=== PATIENT | male | born 1975 | race Caucasian/White ===

== ENCOUNTER 2017-08-01 12:19 | Emergency (ER) | payer MEDICAID, OTHER ==
[~2017-08-01] VITALS: Ht 175.3 cm; Wt 88.5 kg
[~2017-08-01 12:19] MED LIST: ALPR1TAB7 PO; GABA400C PO; METHADONE; QUET200T PO
[2017-08-01] MEDS ORDERED: CLON2TAB4 PO (12:32)
[2017-08-01] MEDS ORDERED: BUPR100T5 PO (12:32)
--- NOTE | 2017-08-01 12:40 | NUR ---
pt refused to sign d/c instruction. threw the resource info paper on the floor and started to yell and curse. pt hit the door while walking out of ed.
== END 2017-08-01 12:45 | disposition home or self-care (01) ==
LOC: ER 12:20
DX: F41.9 Anxiety disorder, unspecified (principal); F17.200 Nicotine dependence, unspecified, uncomplicated
CPT/HCPCS: 99284; A4663

== ENCOUNTER 2018-05-08 09:32 | Emergency (ER) | payer MEDICAID ==
[~2018-05-08] VITALS: Ht 177.8 cm; Wt 88.5 kg
[~2018-05-08 09:32] MED LIST changes: -ALPR1TAB7 PO; +BUPR100T5 PO; +CLON2TAB11 PO; -GABA400C PO; -METHADONE; -QUET200T PO
[2018-05-08] MEDS ORDERED: METH50PO2 PO (09:42)
[2018-05-08] MEDS ORDERED: CITA20TA19 PO (09:42)
[2018-05-08] MEDS ORDERED: ALPR2TAB2 PO (09:42)
--- NOTE | 2018-05-08 09:55 | NUR ---
Patient discharged to home in stable conditon. Written and verbal after care instructions given. Patient verbalizes understanding of instructions.
== END 2018-05-08 09:57 | disposition home or self-care (01) ==
LOC: ER 09:32
DX: L01.00 Impetigo, unspecified (principal); F17.200 Nicotine dependence, unspecified, uncomplicated; F11.10 Opioid abuse, uncomplicated
CPT/HCPCS: 99283; A4663

== ENCOUNTER 2021-02-13 09:19 | Emergency (ER) | payer MEDICAID ==
[~2021-02-13] VITALS: Ht 175.3 cm; Wt 83.9 kg
[~2021-02-13 09:19] MED LIST changes: +ALPR2TAB2 PO; -BUPR100T5 PO; +CITA20TA19 PO; -CLON2TAB11 PO; +METH50PO2 PO
[2021-02-13] MEDS ORDERED: AMOX-430 PO (10:03)
--- NOTE | 2021-02-13 10:18 | NUR ---
Patient discharged to home in stable condition. Written and verbal after care instructions given. Patient verbalizes understanding of instructions. Stressed follow up or return to ER for worsening s/s.
== END 2021-02-13 10:18 | disposition home or self-care (01) ==
LOC: ER 09:19
DX: H00.031 Abscess of right upper eyelid (principal); F11.20 Opioid dependence, uncomplicated; F41.9 Anxiety disorder, unspecified; Z79.899 Other long term (current) drug therapy
CPT/HCPCS: A4663

== ENCOUNTER 2021-02-25 19:09 | Inpatient (IN) | payer BC, MEDICAID ==
[~2021-02-25] VITALS: Ht 177.8 cm; Wt 81.6 kg
[~2021-02-25 19:09] MED LIST changes: +AMOX-430 PO
--- NOTE | 2021-02-25 19:31 | NUR ---
is at bedside for mse.
--- NOTE | 2021-02-25 19:32 | NUR ---
Pt came in today from home for rt side flank pain starting 6 hours pt. 05/14 pain non radiating. Pt denies n/v/d.
[2021-02-25 19:37] LABS: *BILIRUBIN,URIN NEGATIVE (NEGATIVE); *BLOOD, URINE NEGATIVE (NEGATIVE); *CLARITY,URINE CLEAR (CLEAR); *COLOR,URINE YELLOW (YELLOW); *KETONES,URINE NEGATIVE (NEGATIVE); *UROBILINOGEN,URINE 0.2 E.U./dl (NORMAL); LEUKOCYTE ESTERASE ,URINE NEGATIVE (NEGATIVE); NITRITE, URINE NEGATIVE (NEGATIVE); UGLUCOSE NEGATIVE (NEGATIVE)
[2021-02-25] MEDS ORDERED: KETOROLAC TROMETHAMINE 30 MG INJ ONE (19:43)
[2021-02-25] MEDS ORDERED: KETOROLAC TROMETHAMINE 30 MG INJ IVP ONE (19:45)
--- NOTE | 2021-02-25 20:00 | NUR ---
Pt reports pain is reduced from 10 to 6. Pt resting in bed, stable. Vss. Will continue to monitor.
[2021-02-25 20:08] LABS: HEMATOCRIT 42.3 % (36.7-47.1); MEAN CORPUSCULAR HEMOGLOBIN 33.2 uug (23.8-33.4); MEAN CORPUSCULAR VOLUME 95.4 fL (73.0-96.2); PLATELET COUNT (AUTO) 239 K/uL (152-348)
[2021-02-25 20:13] LABS: POTASSIUM 4.1 mmol/L (3.5-5.1)
[2021-02-25] MEDS ORDERED: IV NORMAL SALINE 1000 ML BAG IV ONE (20:15)
[2021-02-25 20:19] LABS: BILIRUBIN,DIRECT 0.2 mg/dL (0.0-0.2); BILIRUBIN,TOTAL 0.6 mg/dL (0.2-1.0); TOTAL PROTEIN, SERUM 7.9 g/dL (6.4-8.2)
[2021-02-25] MEDS ORDERED: HYDROMORPHONE 1 MG/1 ML DISP.SYRIN IV ONE (23:00)
[2021-02-25] MEDS ORDERED: HYDROMORPHONE 1 MG/1 ML DISP.SYRIN ONE (23:12)
[2021-02-26] MEDS ORDERED: HYDROMORPHONE 1 MG/1 ML DISP.SYRIN IV ONE ×2 (00:30→01:45)
[2021-02-26] MEDS ORDERED: HYDROMORPHONE 1 MG/1 ML DISP.SYRIN ONE ×3 (00:39→11:11)
[2021-02-26] MEDS ORDERED: METRONIDAZOLE 500 MG/NS 100ML 100 ML IV ONE ×2 (01:15→01:34)
[2021-02-26] MEDS ORDERED: CEFTRIAXONE 1 G in IV DEXTROSE 5% 50 ML IV ONE (01:15)
[2021-02-26] MEDS ORDERED: GABA-532 PO (01:31)
[2021-02-26] MEDS ORDERED: BUPR150T5 PO (01:31)
[2021-02-26] MEDS ORDERED: TRAZ-182 PO (01:31)
[2021-02-26] MEDS ORDERED: BUSP5TAB3 PO (01:31)
[2021-02-26] MEDS ORDERED: METH5TAB2 PO ×2 (01:31→13:32)
[2021-02-26] MEDS ORDERED: CEFTRIAXONE /D5W 50ML IVPB **ER PYXIS IV ONE (01:34)
[2021-02-26] MEDS ORDERED: BUSP15TA3 PO (01:40)
[2021-02-26] MEDS ORDERED: GABA600T12 PO (01:40)
--- NOTE | 2021-02-26 01:59 | NUR ---
Dr. Crawford on panel call with Michaela Seay NP.
[2021-02-26] MEDS ORDERED: Z GUARD REMEDY PASTE 57 GM TUBE TOP PRN (02:15)
[2021-02-26] MEDS ORDERED: ACETAMINOPHEN 325 MG TABLET PO PRN (02:15)
[2021-02-26] MEDS ORDERED: ONDANSETRON 4 MG/2 ML VIAL IV PRN (02:15)
[2021-02-26] MEDS ORDERED: IV D5 1/2 NS 1000 ML 1,000 ML IV PRN (02:15)
[2021-02-26] MEDS ORDERED: MAGNESIUM HYDROXIDE 30 ML LIQUID UDC PO PRN (02:15)
--- NOTE | 2021-02-26 02:15 | NUR ---
Pt to be admitted to m/s.
[2021-02-26 02:40] LABS: POTASSIUM 3.9 mmol/L (3.5-5.1)
[2021-02-26 02:42] LABS: HEMATOCRIT 44.3 % (36.7-47.1); MEAN CORPUSCULAR HEMOGLOBIN 32.7 uug (23.8-33.4); MEAN CORPUSCULAR VOLUME 95.8 fL (73.0-96.2); PLATELET COUNT (AUTO) 245 K/uL (152-348)
--- NOTE | 2021-02-26 02:48 | NUR ---
Bro from nuclear medicine called, she will be taking pt. to get scan from ER.
[2021-02-26 02:50] LABS: BILIRUBIN,DIRECT 0.3 mg/dL (0.0-0.2); BILIRUBIN,TOTAL 0.6 mg/dL (0.2-1.0); PHOSPHOROUS 3.4 mg/dL (2.5-4.9)
--- NOTE | 2021-02-26 03:30 | NUR ---
Pt. comfortable, watching television. Vss. Will continue to monitor.
--- NOTE | 2021-02-26 03:34 | NUR ---
Gave report to MAURICIO Jones.
--- NOTE | 2021-02-26 03:34 | NUR ---
Carisa from nuclear medicine called, will not be doing hida scan on pt. tonight.
[2021-02-26 03:56] LABS: THYROID STIMULATING HORMONE 4.796 mIU/mL (0.358-3.740)
--- NOTE | 2021-02-26 04:15 | NUR ---
Gave report to MAURICIO Lopez.
[2021-02-26 04:30] VITALS: BP 117/76
[2021-02-26] MEDS: MORPHINE SULFATE 2 MG/1 ML DISP.SYRIN IV PRN ×3 (05:04→18:12)
[2021-02-26 05:18] VITALS: BP 117/76
--- NOTE | 2021-02-26 08:00 | NUR ---
RECEIVED CHANGE OF SHIFT REPORT ON PT. C/O RIGH FLANK PAIN, AND ABD PAIN 05/14. PT A/O X4, ON ROOM AIR, NO SIGNS OF DISTRESS. PT BRP, IV ON THE RIGHT HAND 20G, PATENT AND INTACT. BED LOW AND LOCKED, CALL LIGHT WITHIN REACH. PT NPO PENDING CONSULT FROM DR CALVO FOR POSSIBLE SURGICAL PROCEDURE. WILL CONTINUE WITH PLAN OF CARE.
[2021-02-26] MEDS ORDERED: PANTOPRAZOLE SODIUM 40 MG VIAL IV SCH (09:00)
[2021-02-26] MEDS ORDERED: LORAZEPAM 2 MG/1 ML VIAL IV PRN ×2 (09:00)
[2021-02-26] MEDS: GABAPENTIN 300 MG CAPSULE PO SCH ×3 (09:05→17:09)
[2021-02-26] MEDS: busPIRone 10 MG TABLET PO SCH ×2 (09:05→17:09)
[2021-02-26] MEDS: buPROPion SR 150 MG TABLET.SA PO SCH ×3 (09:05→17:09)
[2021-02-26] MEDS: LORAZEPAM 2 MG/1 ML VIAL IV PRN ×2 (09:06→23:23)
[2021-02-26] MEDS ORDERED: MIDAZOLAM HCL 2 MG/2 ML VIAL ONE (09:09)
[2021-02-26] MEDS ORDERED: HYDROMORPHONE 2 MG/1 ML DISP.SYRIN ONE (09:10)
[2021-02-26] MEDS ORDERED: ROCURONIUM BROMIDE 50 MG/5 ML VIAL ONE (09:10)
[2021-02-26] MEDS ORDERED: FENTANYL CITRATE 250 MCG/5 ML AMPUL ONE (09:10)
--- NOTE | 2021-02-26 09:10 | NUR ---
PT WENT TO SURGERY FOR LAP LIBERTY WITH POSSIBLE OPEN. INFORMED CONSENT OBTAINED, PREOP CHECKLIST COMPLETE, REPORT GIVEN TO OR NURSE.
[2021-02-26] MEDS ORDERED: BUPIVACAINE/EPI PF 0.25% 30 ML VIAL ONE (09:12)
[2021-02-26] MEDS ORDERED: GLYCOPYRROLATE 0.2 MG/ML VIAL ONE (10:02)
[2021-02-26] MEDS ORDERED: ONDANSETRON 4 MG/2 ML VIAL IV ONE (10:24)
[2021-02-26] MEDS ORDERED: CEFAZOLIN 1 G VIAL IM ONE (10:24)
[2021-02-26] MEDS ORDERED: PROPOFOL 200 MG/20 ML BOTTLE IV ONE (10:24)
[2021-02-26] MEDS ORDERED: NEOSTIGMINE METHYLSULFATE 10 MG/10 ML VIAL IV ONE (10:24)
[2021-02-26] MEDS ORDERED: GLYCOPYRROLATE 0.2 MG/ML VIAL IJ ONE (10:24)
[2021-02-26] MEDS ORDERED: DEXAMETHASONE SOD PHOSPHATE 4 MG INJ IV ONE (10:24)
[2021-02-26] MEDS ORDERED: SEVOFLURANE 250 ML BOTTLE IH ONE (10:24)
[2021-02-26] MEDS ORDERED: MEPERIDINE 25 MG/1 ML DISP.SYRIN ONE (10:34)
[2021-02-26] MEDS ORDERED: ONDANSETRON 4 MG/2 ML VIAL ONE (11:12)
--- NOTE | 2021-02-26 12:00 | NUR ---
PT BACK FROM SURGERY, WITH MARILIA FITZPATRICK RN. OKAY TO CONTINUE REGULAR DIET PER MD. PT VITALS STABLE, PT GIVEN INCENTIVE SPIROMETER AND PAIN MEDICATION, WILL CONTINUE TO MONITOR.
[2021-02-26] MEDS: METRONIDAZOLE 500 MG/NS 100ML 500 MG in PREMIXED 1 EACH IV SCH ×2 (12:17→18:09)
[2021-02-26 12:45] VITALS: BP 94/55
[2021-02-26 15:27] VITALS: BP 113/54
[2021-02-26] MEDS: TRAZODONE 50 MG TABLET PO SCH (17:09)
--- NOTE | 2021-02-26 17:15 | NUR ---
PT REFUSED SECOND DOSE OF WELLBUTRIN, PT STATES HE ONLY TAKES 150MG ONCE/DAY, MD NOTIFIED. WILL CONTINUE WITH PLAN OF CARE.
--- NOTE | 2021-02-26 20:26 | NUR ---
Received on bed awake with the same ivf on. complaints of incisional pain and is grimacing but was given morphine 1 mg iv at 1818 hours not yet due, Dr Schroeder paged and informed , awaiting orders,
--- NOTE | 2021-02-26 20:29 | NUR ---
responded and will give orders now. awaiting for orders,
[2021-02-26] MEDS ORDERED: IV NS 1000 ML 1,000 ML IV PRN (20:30)
[2021-02-26 20:37] VITALS: BP 103/56
--- NOTE | 2021-02-26 20:56 | NUR ---
dilaudid 1 mg ivp prepared and when came to the room patient is asleep. nsaline ivf started , asleep.
--- NOTE | 2021-02-26 21:16 | NUR ---
report given to another rn foir further care. ivf on flow.patient is asleep. incentive spirometer at bedside,
[2021-02-27] MEDS ORDERED: CEFTRIAXONE 1 G in IV DEXTROSE 5% 50 ML IV SCH (01:00)
--- NOTE | 2021-02-27 02:00 | NUR ---
C/O SHARP ABD PAINS, RADIATING TO SHOULDERS. INSTRUCTED TO AMBULATE AD ZHEN TO GET RID GAS PAINS. VERBALIZED UNDERSTANDING AND AMBULATING AD ZHEN.
[2021-02-27] MEDS: METRONIDAZOLE 500 MG/NS 100ML 500 MG in PREMIXED 1 EACH IV SCH ×2 (03:31→11:04)
[2021-02-27] MEDS: HYDROMORPHONE 1 MG/1 ML DISP.SYRIN IV PRN ×2 (03:32→07:54)
[2021-02-27 04:43] VITALS: BP 127/60
[2021-02-27 07:01] LABS: HEMATOCRIT 37.6 % (36.7-47.1); MEAN CORPUSCULAR HEMOGLOBIN 33.1 uug (23.8-33.4); MEAN CORPUSCULAR VOLUME 97.8 fL (73.0-96.2); PLATELET COUNT (AUTO) 217 K/uL (152-348)
[2021-02-27 07:13] LABS: CREATININE 0.9 mg/dL (0.6-1.3); POTASSIUM 4.5 mmol/L (3.5-5.1)
[2021-02-27] MEDS: PANTOPRAZOLE SODIUM 40 MG TABLET.DR PO SCH (07:53)
[2021-02-27] MEDS: busPIRone 10 MG TABLET PO SCH ×2 (08:01→16:16)
[2021-02-27] MEDS: buPROPion SR 150 MG TABLET.SA PO SCH (08:01)
[2021-02-27] MEDS: GABAPENTIN 300 MG CAPSULE PO SCH ×3 (08:01→16:16)
[2021-02-27 08:18] VITALS: BP 110/69
[2021-02-27] MEDS: LORAZEPAM 2 MG/1 ML VIAL IV PRN (10:35)
--- NOTE | 2021-02-27 11:00 | NUR ---
PT IV WAS INFILTRATED, IV REMOVED. MULTIPLE FAILED ATTEMPTS TO REINSERT IV, VEIN FINDER ALSO USED AND WAS UNSUCCESSFUL. PT IS A HARD STICK WITH PAST HISTORY OF DRUG ABUSE FOR 20YRS.
[2021-02-27 11:35] VITALS: BP 110/75
--- NOTE | 2021-02-27 13:00 | NUR ---
MULTIPLE UNSUCCESSFUL ATTEMPTS, MD MADE AWARE, MEDICATIONS CHANGE TO PO
[2021-02-27] MEDS ORDERED: levoFLOXacin 500 MG TABLET PO SCH (13:30)
[2021-02-27] MEDS: METRONIDAZOLE 500 MG TABLET PO SCH ×2 (14:21→21:17)
[2021-02-27] MEDS: OXYCODONE HCL 5 MG TABLET PO PRN ×2 (14:22→20:57)
[2021-02-27 14:59] VITALS: BP 116/70
[2021-02-27] MEDS ORDERED: BISACODYL 5 MG TABLET.DR PO ONE (16:00)
[2021-02-27] MEDS: SIMETHICONE 80 MG TAB.CHEW PO PRN (16:16)
[2021-02-27] MEDS: TRAZODONE 50 MG TABLET PO SCH (18:43)
[2021-02-27 21:21] VITALS: BP 109/61
[2021-02-28] MEDS ORDERED: ZOLPIDEM 5 MG TABLET PO PRN
[2021-02-28] MEDS: OXYCODONE HCL 5 MG TABLET PO PRN ×3 (02:54→11:50)
[2021-02-28 04:00] VITALS: BP 120/69
--- NOTE | 2021-02-28 05:44 | NUR ---
PT slept intermittently throughout the night. Requested Ambien, order received and patient tolerated well. No other distress noted. Tolerated all medications given. Safety and comfort provided. Will endorse to day shift.
[2021-02-28 06:38] LABS: HEMATOCRIT 36.3 % (36.7-47.1); MEAN CORPUSCULAR HEMOGLOBIN 33.4 uug (23.8-33.4); PLATELET COUNT (AUTO) 208 K/uL (152-348)
[2021-02-28] MEDS: PANTOPRAZOLE SODIUM 40 MG TABLET.DR PO SCH (06:40)
[2021-02-28] MEDS: METRONIDAZOLE 500 MG TABLET PO SCH (06:41)
[2021-02-28 06:53] LABS: CREATININE 0.8 mg/dL (0.6-1.3); POTASSIUM 4.3 mmol/L (3.5-5.1)
[2021-02-28 07:40] VITALS: BP 129/61
[2021-02-28] MEDS: buPROPion SR 150 MG TABLET.SA PO SCH (08:46)
[2021-02-28] MEDS: GABAPENTIN 300 MG CAPSULE PO SCH (08:46)
[2021-02-28] MEDS: busPIRone 10 MG TABLET PO SCH (08:46)
[2021-02-28 11:32] VITALS: BP 108/52
[2021-02-28] MEDS: SIMETHICONE 80 MG TAB.CHEW PO PRN (11:53)
[2021-02-28] MEDS ORDERED: METR-147 PO (12:26)
[2021-02-28] MEDS ORDERED: CIPR-262 PO (12:26)
--- NOTE | 2021-02-28 14:01 | NUR ---
Discharged patient to home. Patient Aox4. On room air. No signs of acute distress. Discharge documents given and signed. Belongings accounted for and belongings list signed. IV armband removed. Prescription given to patient. Patient ambulated to hospital lobby. Patient left hospital via private car.
[2021-03-01] MEDS ORDERED: HYDR-3980 PO (10:49)
[2021-03-01] MEDS ORDERED: CLON0.5T PO (10:49)
== END 2021-02-28 13:10 | disposition home or self-care (01) | DRG 419 ==
LOC: ER 19:10 → MEDSURG3 02-26 03:50
PROVIDERS: ADMIT Nurse Practitioner Acute Care; ATTEND Nurse Practitioner Acute Care
PROC: 0FT44ZZ Resection of Gallbladder, Percutaneous Endoscopic Approach (ICD-10-PCS; principal; 2021-02-26)
DX: K80.00 Calculus of gallbladder with acute cholecystitis without obstruction (principal); F17.210 Nicotine dependence, cigarettes, uncomplicated; E03.8 Other specified hypothyroidism; F41.9 Anxiety disorder, unspecified; R74.01 Elevation of levels of liver transaminase levels; Z20.822 Contact with and (suspected) exposure to COVID-19
CPT/HCPCS: 36415; 71045; 83690; 83735; 84100; 84443; 85025; 85730; 86850; 86900; 86901; 93005; A4663; C9113; G0378; J0690; J0696; J1100; J1170; J1885; J2060; J2175; J2250; J2270; J2405; J3010; J3490; J7030; J7040; J7042; J7060

== ENCOUNTER 2021-03-01 09:48 | Inpatient (IN) | payer BC, MEDICAID ==
[~2021-03-01] VITALS: Ht 177.8 cm; Wt 81.6 kg
[~2021-03-01 09:48] MED LIST changes: -ALPR2TAB2 PO; -AMOX-430 PO; +BUPR150T5 PO; +BUSP15TA3 PO; +CIPR-262 PO; -CITA20TA19 PO; +GABA600T12 PO; -METH50PO2 PO; +METH5TAB2 PO; +METR-147 PO; +TRAZ-182 PO
[2021-03-01] MEDS ORDERED: KETOROLAC TROMETHAMINE 15 MG INJ IVP ONE (10:30)
[2021-03-01] MEDS ORDERED: METOCLOPRAMIDE HCL 10 MG/2 ML VIAL IV ONE (10:30)
[2021-03-01] MEDS: METRONIDAZOLE 500 MG/NS 100ML 100 ML IV ONE ×2 (10:30→16:30)
[2021-03-01] MEDS: CEFTRIAXONE 1 G in IV DEXTROSE 5% 50 ML IV ONE ×2 (10:40→10:44)
[2021-03-01] MEDS ORDERED: METRONIDAZOLE 500 MG/NS 100ML 100 ML IV ONE (10:46)
[2021-03-01] MEDS ORDERED: CEFTRIAXONE /D5W 50ML IVPB **ER PYXIS IV ONE (10:46)
[2021-03-01] MEDS ORDERED: IOHEXOL 300MG/ML 100 ML INFUS..BTL ONE (10:49)
[2021-03-01] MEDS ORDERED: CLON0.5T PO (10:49)
[2021-03-01] MEDS ORDERED: SWABABLE VALVE TRANSFER SET EA MC ONE (10:49)
[2021-03-01] MEDS ORDERED: HYDR-3980 PO (10:49)
[2021-03-01] MEDS ORDERED: IV NORMAL SALINE 250 ML IV ONE (10:49)
[2021-03-01 10:50] LABS: HEMATOCRIT 38.8 % (36.7-47.1); MEAN CORPUSCULAR HEMOGLOBIN 33.1 uug (23.8-33.4); MEAN CORPUSCULAR VOLUME 97.2 fL (73.0-96.2); PLATELET COUNT (AUTO) 226 K/uL (152-348)
--- NOTE | 2021-03-01 11:00 | NUR ---
JOSE ENRIQUE STOPPED WORKING, PT REQUESTING IM PAIN MED AT THIS TIME. MD WODO. ROCEPHINE COMPLETED BUT FLAGYL IV PENDING FOR NOW. MD/PT AWARE.
[2021-03-01] MEDS: HYDROMORPHONE 1 MG/1 ML DISP.SYRIN IM ONE ×2 (11:01→11:39)
[2021-03-01 11:02] LABS: BILIRUBIN,DIRECT 0.3 mg/dL (0.0-0.2); BILIRUBIN,TOTAL 0.9 mg/dL (0.2-1.0); POTASSIUM 4.2 mmol/L (3.5-5.1); TOTAL PROTEIN, SERUM 7.9 g/dL (6.4-8.2)
--- NOTE | 2021-03-01 11:02 | NUR ---
Note joceline in EDM - 03/01/21 at 1134 by SAVANNAH JOSE ENRIQUE STOPPED WORKING, PT REQUESTING IM PAIN MED AT THIS TIME. MD WOOD. ROCEPHINE COMPLETED BUT FLAGYL IV PENDING FOR NOW. MD/PT AWARE.
[2021-03-01] MEDS ORDERED: HYDROMORPHONE 1 MG/1 ML DISP.SYRIN ONE ×3 (11:06→19:18)
--- NOTE | 2021-03-01 11:43 | NUR ---
DR. BUCHANAN TALKING TO DR. CALVO REGARDING CT RESULTS
--- NOTE | 2021-03-01 11:50 | NUR ---
[facility], CALLED [facility] AND INFORMED THEM.
--- NOTE | 2021-03-01 11:55 | NUR ---
CALLED [facility] FOR MIDLINE INSERTION PER MD ORDER
--- NOTE | 2021-03-01 12:19 | NUR ---
CALLED [facility], [facility], THE [address] IS [address] BY KAREN SAWYER,
[2021-03-01 13:11] LABS: *BILIRUBIN,URIN NEGATIVE (NEGATIVE); *CLARITY,URINE CLEAR (CLEAR); *COLOR,URINE YELLOW (YELLOW); *KETONES,URINE NEGATIVE (NEGATIVE); *UROBILINOGEN,URINE 0.2 E.U./dl (NORMAL); LEUKOCYTE ESTERASE ,URINE NEGATIVE (NEGATIVE); NITRITE, URINE NEGATIVE (NEGATIVE); UGLUCOSE NEGATIVE (NEGATIVE)
[2021-03-01 13:12] LABS: *BLOOD, URINE TRACE (NEGATIVE)
[2021-03-01 14:24] LABS: BACTERIA,URINE NONE SEEN /HPF (NONE SEEN); MUCUS,URINE FEW /LPF (0-FEW); RBC,URINE 0-3 /HPF (0-3); SQUAMOUS EPITHELIAL CELL,UR NONE SEEN /HPF (NONE SEEN); URINE AMORPHOUS URATE FEW /HPF; WBC,URINE 0-3 /HPF (0-3)
--- NOTE | 2021-03-01 14:43 | NUR ---
DEONTE CALLED AND SAID THEY ARE RUNNING BEHIND, EDUAR [id number], CALLED [facility] AND UPDATED THEM WITH NEW ETA.
[2021-03-01] MEDS ORDERED: HYDROMORPHONE 1 MG/1 ML DISP.SYRIN IM ONE ×2 (16:00→19:15)
--- NOTE | 2021-03-01 16:07 | NUR ---
GOYO CHICAS AT BEDSIDE FOR MID LINE INSERTION PER MD ORDER.
--- NOTE | 2021-03-01 16:20 | NUR ---
MAGALY PLACED GAUGE 18 PLACED ON RIGHT UPPER ARM.
--- NOTE | 2021-03-01 16:30 | NUR ---
[facility] AT BEDSIDE TO TAKE THE PT TO [facility] FOR MRCP PROCEDURE REQUESTED BY DR. CALVO.
--- NOTE | 2021-03-01 16:35 | NUR ---
INFORMED [facility] ABOUT PT BEING ON THE WAY.
--- NOTE | 2021-03-01 17:30 | NUR ---
[facility]
--- NOTE | 2021-03-01 20:38 | NUR ---
Gave report MAURICIO Jones.
[2021-03-01] MEDS ORDERED: MAGNESIUM HYDROXIDE 30 ML LIQUID UDC PO PRN (20:45)
[2021-03-01] MEDS ORDERED: levoFLOXacin 500 MG/D5W 500 MG in PREMIXED 1 EACH IV SCH (20:45)
[2021-03-01] MEDS ORDERED: Z GUARD REMEDY PASTE 57 GM TUBE TOP PRN (20:45)
[2021-03-01] MEDS ORDERED: ACETAMINOPHEN 325 MG TABLET PO PRN (20:45)
[2021-03-01] MEDS ORDERED: ONDANSETRON 4 MG/2 ML VIAL IV PRN (20:45)
[2021-03-01 21:34] VITALS: BP 115/73
--- NOTE | 2021-03-01 21:35 | NUR ---
Pt. admitted to med surg , under care of Dr.Monica cunningham Dx:Postoperative abdominal wound hemorrhage vitals stable Belongs List completed
[2021-03-01] MEDS: HYDROMORPHONE 1 MG/1 ML DISP.SYRIN IV PRN (21:54)
[2021-03-01] MEDS: IV NS 1000 ML 1,000 ML IV PRN (21:55)
[2021-03-01] MEDS ORDERED: METRONIDAZOLE 500 MG/NS 100ML 500 MG in PREMIXED 1 EACH IV SCH (22:00)
[2021-03-01] MEDS ORDERED: HYDROCODONE/APAP 10-325 MG TABLET PO PRN (22:45)
[2021-03-01] MEDS ORDERED: BUSPIRONE HCL PO SCH (23:45)
[2021-03-02] MEDS: busPIRone 10 MG TABLET PO SCH ×3 (00:01→17:37)
[2021-03-02] MEDS: ZOLPIDEM 5 MG TABLET PO PRN ×2 (00:22→23:34)
[2021-03-02] MEDS: HYDROMORPHONE 1 MG/1 ML DISP.SYRIN IV PRN ×4 (03:41→22:17)
[2021-03-02 04:10] VITALS: BP 114/80
--- NOTE | 2021-03-02 05:15 | NUR ---
Pt slept intermittently throughout the night. Requested Dilaudid for pain, tolerated well. Pt is AOx4, BRP, able to make needs known. IV site intact running ordered fluids. Safety and comfort provided. No other issues or concerns at this time, will endorse to day shift.
[2021-03-02] MEDS: METRONIDAZOLE 500 MG TABLET PO SCH ×3 (06:08→21:04)
[2021-03-02 06:27] LABS: HEMATOCRIT 35.3 % (36.7-47.1); MEAN CORPUSCULAR HEMOGLOBIN 33.7 uug (23.8-33.4); MEAN CORPUSCULAR VOLUME 96.7 fL (73.0-96.2); PLATELET COUNT (AUTO) 219 K/uL (152-348)
[2021-03-02 06:46] LABS: CREATININE 0.9 mg/dL (0.6-1.3); PHOSPHOROUS 2.5 mg/dL (2.5-4.9); POTASSIUM 4.1 mmol/L (3.5-5.1)
[2021-03-02] MEDS ORDERED: GABAPENTIN 300 MG CAPSULE PO SCH (09:00)
[2021-03-02] MEDS ORDERED: METHADONE PO SCH (09:00)
[2021-03-02] MEDS ORDERED: Medication Not On Formulary EA (Gabapentin 1 TAB) PO SCH (09:00)
[2021-03-02] MEDS ORDERED: BUSPIRONE HCL PO SCH (09:00)
[2021-03-02] MEDS: GABAPENTIN 300 MG CAPSULE PO SCH ×4 (09:59→17:38)
[2021-03-02] MEDS: CLONAZEPAM 0.5 MG TABLET PO SCH ×3 (09:59→17:38)
[2021-03-02] MEDS: buPROPion SR 150 MG TABLET.SA PO SCH ×2 (09:59→17:37)
[2021-03-02] MEDS: CIPROFLOXACIN HCL 250 MG TABLET PO SCH ×2 (10:00→17:58)
[2021-03-02 11:04] LABS: BILIRUBIN,DIRECT 0.3 mg/dL (0.0-0.2); TOTAL PROTEIN, SERUM 6.7 g/dL (6.4-8.2)
[2021-03-02 11:21] VITALS: BP 115/82
[2021-03-02] MEDS: HYDROCODONE/APAP 10-325 MG TABLET PO PRN ×2 (13:07→20:36)
[2021-03-02 15:37] VITALS: BP 112/67
--- NOTE | 2021-03-02 16:20 | NUR ---
Nursing -Patient insisted to shower, punctured sites covered with tegaderm Showered self independently after set up by [employer]IM[employer] CARETAKER,, patient refused to wait, demanding with his needs. Safety reviewed , emphasized. No Nausea, no vomiting . Vevalized adequate relief from his pain.
[2021-03-02] MEDS: TRAZODONE 50 MG TABLET PO SCH ×2 (17:37)
[2021-03-02] MEDS ORDERED: TRAZODONE 50 MG TABLET PO SCH (18:00)
[2021-03-02 20:00] VITALS: BP 126/78
--- NOTE | 2021-03-02 20:45 | NUR ---
Patient AALOx4. BRP ,c/o lower back pain and abd'l pain.Medicated with norco.Abd'l area with dressing intact clean and dry s/p cholecystectomy.Midline on right upper arm patent and intact with IVF infusing well.Patient on ATB therapy .Compliant with medication.No a/r noted .VSs.will continue to monitor.
[2021-03-03 04:00] VITALS: BP 103/56
[2021-03-03] MEDS: HYDROMORPHONE 1 MG/1 ML DISP.SYRIN IV PRN ×2 (04:46→10:41)
[2021-03-03] MEDS: METRONIDAZOLE 500 MG TABLET PO SCH ×2 (05:18→13:15)
[2021-03-03 06:15] LABS: MEAN CORPUSCULAR HEMOGLOBIN 34.1 uug (23.8-33.4); PLATELET COUNT (AUTO) 241 K/uL (152-348)
[2021-03-03 06:26] LABS: BILIRUBIN,TOTAL 0.7 mg/dL (0.2-1.0)
[2021-03-03] MEDS: IV NS 1000 ML 1,000 ML IV PRN (06:54)
--- NOTE | 2021-03-03 08:00 | NUR ---
IN BED AWAKE ALERT AND ORIENTED X3 NO SS OF DISTRESS BUT ON AND OFF PAIN OVER ABDOMINAL INCISION. CONTINUE WITH PAIN MAGT
[2021-03-03] MEDS: CIPROFLOXACIN HCL 250 MG TABLET PO SCH (08:18)
[2021-03-03] MEDS: CLONAZEPAM 0.5 MG TABLET PO SCH ×2 (08:19→13:15)
[2021-03-03] MEDS: busPIRone 10 MG TABLET PO SCH (08:19)
[2021-03-03] MEDS: buPROPion SR 150 MG TABLET.SA PO SCH (08:19)
[2021-03-03] MEDS: GABAPENTIN 300 MG CAPSULE PO SCH ×2 (08:19→13:15)
[2021-03-03] MEDS: HYDROCODONE/APAP 10-325 MG TABLET PO PRN (08:25)
--- NOTE | 2021-03-03 11:00 | NUR ---
SEEN BY HOSPITALIST FOR FOLLOW-UP WITH ORDER FOR DISCHARGE.
[2021-03-03 11:26] VITALS: BP 101/59
--- NOTE | 2021-03-03 13:33 | NUR ---
DISCHARGED HOME STABLE ACCOMPANIED BY [facility] WITH RX AND FOLLOW-UP INSTRUCTION WITH DR CALVO.
== END 2021-03-03 13:30 | disposition home or self-care (01) | DRG 861 ==
LOC: ER 09:48 → TELE3 20:59 → MEDSURG3 21:50
PROVIDERS: ADMIT Nurse Practitioner Acute Care; ATTEND Nurse Practitioner Acute Care
PROC: 05H533Z Insertion of Infusion Device into Right Subclavian Vein, Percutaneous Approach (ICD-10-PCS; principal; 2021-03-01)
PROC: B546ZZA Ultrasonography of Right Subclavian Vein, Guidance (ICD-10-PCS; principal; 2021-03-01)
DX: G89.18 Other acute postprocedural pain (principal); N13.30 Unspecified hydronephrosis; F17.210 Nicotine dependence, cigarettes, uncomplicated; G89.4 Chronic pain syndrome; Z90.49 Acquired absence of other specified parts of digestive tract; F41.9 Anxiety disorder, unspecified; F11.10 Opioid abuse, uncomplicated; Z20.822 Contact with and (suspected) exposure to COVID-19
CPT/HCPCS: 36415; 70030-TC; 71045; 74181; 76700; 83605; 83690; 83735; 84100; 85025; 87040; 93005; A4217; A4663; A6209; G0378; J0696; J1170; J1956; J2405; J3490; J7030; J7050; Q9967

== ENCOUNTER 2021-10-18 09:58 | Emergency (ER) | payer MEDICAID ==
[~2021-10-18] VITALS: Ht 177.8 cm; Wt 79.4 kg
[~2021-10-18 09:58] MED LIST changes: +CLON0.5T PO; +HYDR-3980 PO; +METH-815 PO; -METH5TAB2 PO
[2021-10-18] MEDS ORDERED: KETOROLAC TROMETHAMINE 15 MG INJ IVP ONE (10:15)
[2021-10-18] MEDS ORDERED: IV NS 1000 ML 1,000 ML IV ONE (10:15)
[2021-10-18] MEDS ORDERED: IV NORMAL SALINE 250 ML IV ONE (10:28)
[2021-10-18] MEDS ORDERED: SWABABLE VALVE TRANSFER SET EA MC ONE (10:28)
[2021-10-18] MEDS ORDERED: IOHEXOL 350 100 ML INFUS..BTL ONE (10:28)
[2021-10-18] MEDS ORDERED: LORAZEPAM 0.5 MG TABLET PO ONE (10:30)
[2021-10-18 10:38] LABS: *BILIRUBIN,URIN NEGATIVE (NEGATIVE); *BLOOD, URINE NEGATIVE (NEGATIVE); *CLARITY,URINE CLEAR (CLEAR); *COLOR,URINE YELLOW (YELLOW); *KETONES,URINE NEGATIVE (NEGATIVE); *UROBILINOGEN,URINE 0.2 E.U./dl (NORMAL); LEUKOCYTE ESTERASE ,URINE NEGATIVE (NEGATIVE); NITRITE, URINE NEGATIVE (NEGATIVE); UGLUCOSE NEGATIVE (NEGATIVE)
[2021-10-18 10:48] LABS: HEMATOCRIT 44.8 % (36.7-47.1); MEAN CORPUSCULAR HEMOGLOBIN 34.1 uug (23.8-33.4); MEAN CORPUSCULAR VOLUME 96.7 fL (73.0-96.2); PLATELET COUNT (AUTO) 226 K/uL (152-348)
[2021-10-18 10:52] LABS: POTASSIUM 4.6 mmol/L (3.5-5.1)
--- NOTE | 2021-10-18 10:52 | NUR ---
PT IS IN ROOM #1B. DR MI EVALUATED THE PT.
[2021-10-18] MEDS ORDERED: LORAZEPAM 1 MG TABLET ONE (10:54)
[2021-10-18] MEDS ORDERED: KETOROLAC TROMETHAMINE 15 MG INJ ONE (10:54)
[2021-10-18 11:04] LABS: BILIRUBIN,TOTAL 0.3 mg/dL (0.2-1.0); TOTAL PROTEIN, SERUM 7.4 g/dL (6.4-8.2)
[2021-10-18] MEDS ORDERED: CYCLOBENZAPRINE HCL 10 MG TABLET PO ONE (12:00)
[2021-10-18] MEDS ORDERED: CYCLOBENZAPRINE HCL 10 MG TABLET ONE (12:10)
[2021-10-18] MEDS ORDERED: CYCL10TA9 PO (12:19)
--- NOTE | 2021-10-18 12:45 | NUR ---
PT WAS D/C'd TO HOME. D/C INSTRUCTIONS GIVEN TO THE PT BY DR MI.
[2021-10-18 12:46] VITALS: BP 132/72
== END 2021-10-18 12:46 | disposition home or self-care (01) ==
LOC: ER 09:58
DX: M54.9 Dorsalgia, unspecified (principal); R07.89 Other chest pain; F17.210 Nicotine dependence, cigarettes, uncomplicated; Z90.49 Acquired absence of other specified parts of digestive tract; F11.21 Opioid dependence, in remission; Z20.822 Contact with and (suspected) exposure to COVID-19
CPT/HCPCS: 36415; 71045; 71275; 74174; 80053; 81003; 84484; 85025; 87426; 93005; 96360; 99285; Q9967; A4663; J1885; J7030; J7050

== ENCOUNTER 2021-12-09 11:27 | Emergency (ER) | payer MEDICAID ==
[~2021-12-09] VITALS: Ht 177.8 cm; Wt 79.4 kg
[~2021-12-09 11:27] MED LIST changes: +CYCL10TA9 PO
[2021-12-09] MEDS ORDERED: KETOROLAC TROMETHAMINE 30 MG INJ IM ONE (12:00)
[2021-12-09] MEDS ORDERED: KETOROLAC TROMETHAMINE 30 MG INJ ONE (12:02)
[2021-12-09 12:36] LABS: HEMATOCRIT 41.7 % (36.7-47.1); MEAN CORPUSCULAR HEMOGLOBIN 33.5 uug (23.8-33.4); MEAN CORPUSCULAR VOLUME 95.7 fL (73.0-96.2); PLATELET COUNT (AUTO) 224 K/uL (152-348)
[2021-12-09 12:40] LABS: CARBON DIOXIDE 25 mmol/L (21-32); CHLORIDE 104 mmol/L (98-107); CREATININE 1.1 mg/dL (0.6-1.3); GLUCOSE 93 mg/dL (74-106); POTASSIUM 4.1 mmol/L (3.5-5.1); UREA NITROGEN, BLOOD 17 mg/dL (7-18)
--- NOTE | 2021-12-09 12:45 | NUR ---
Pain down now to 5-6/10, pt still feels like a "bubble" is in his chest.
[2021-12-09 12:48] LABS: ALANINE AMINOTRANSFERASE 40 U/L (16-63); ALKALINE PHOSPHATASE 45 U/L (50-136); ASPARTATE AMINOTRANSFERASE 16 U/L (15-37); BILIRUBIN,DIRECT 0.1 mg/dL (0.0-0.2); BILIRUBIN,TOTAL 0.4 mg/dL (0.2-1.0); TOTAL PROTEIN, SERUM 6.9 g/dL (6.4-8.2)
[2021-12-09] MEDS ORDERED: NAPR-1164 PO (13:51)
--- NOTE | 2021-12-09 14:52 | NUR ---
Gave pt RX and d/c instructions, pt verbalized understanding. Pt feeling better.
== END 2021-12-09 15:00 | disposition home or self-care (01) ==
LOC: ER 11:28
DX: R07.9 Chest pain, unspecified (principal); F17.210 Nicotine dependence, cigarettes, uncomplicated; F11.20 Opioid dependence, uncomplicated; Z90.49 Acquired absence of other specified parts of digestive tract; F32.A Depression, unspecified
CPT/HCPCS: 36415; 71045; 80048; 80076; 84484 ×2; 85025; 93005; 96372; 99285; 99406; J1885; A4663

== ENCOUNTER 2022-03-30 10:50 | Emergency (ER) | payer MEDICAID ==
[~2022-03-30] VITALS: Ht 177.8 cm; Wt 72.6 kg
[~2022-03-30 10:50] MED LIST changes: -CIPR-262 PO; -CYCL10TA9 PO; -HYDR-3980 PO; -METH-815 PO; -METR-147 PO; +NAPR-1164 PO
[2022-03-30] MEDS ORDERED: CLIN300C12 PO (13:32)
[2022-03-30] MEDS ORDERED: HYDR-3980 PO (13:32)
[2022-03-30 15:51] VITALS: BP 110/79
== END 2022-03-30 13:40 | disposition home or self-care (01) ==
LOC: ER 10:50
DX: K04.7 Periapical abscess without sinus (principal); F17.210 Nicotine dependence, cigarettes, uncomplicated; F11.20 Opioid dependence, uncomplicated; F32.A Depression, unspecified; F41.9 Anxiety disorder, unspecified; Z79.899 Other long term (current) drug therapy; G89.4 Chronic pain syndrome; Z86.19 Personal history of other infectious and parasitic diseases; Z90.49 Acquired absence of other specified parts of digestive tract
CPT/HCPCS: A4663